=== PATIENT | male | born 1960 | race Caucasian/White ===

== ENCOUNTER 2018-02-03 18:17 | Observation (INO) | payer BC ==
[2018-02-03] MEDS ORDERED: HYDROmorphone 1 MG/ML Syringe IVPUSH ONE (18:46)
[2018-02-03] MEDS ORDERED: HYDROmorphone 1 MG/ML Syringe ONE (18:47)
[2018-02-03] MEDS ORDERED: Belladonna Alkaloids/Opium 16.2-30 MG Supp RECTAL ONE (19:02)
[2018-02-03] MEDS: Acetaminophen/HYDROcodone 325-5 MG Tab PO PRN (20:49)
[2018-02-03] MEDS: Famotidine 20 MG Tab PO SCH (21:14)
[2018-02-03] MEDS: Docusate Sodium 100 MG Cap PO SCH (21:15)
[2018-02-03] MEDS: Bacitracin Oint 28.35 GM Tube TOP SCH (22:37)
--- NOTE | 2018-02-04 01:04 | HP ---
DATE OF : 1960 PRIMARY CARE PHYSICIAN: None PCP HISTORY OF PRESENT ILLNESS: A 57-year-old. He presented to the emergency room with gross hematuria. Apparently, 5 or 6 weeks ago, he had a bladder tumor resection done elsewhere. He started bleeding 2 days ago and the bleeding became excessive. His hemoglobin went from 13 to 9.8 earlier today. PAST MEDICAL HISTORY: Coronary artery bypass surgery. Cold with staph infection. Thirteen weeks of IV antibiotics. He has no cardiac stents. MEDICATIONS: He is on multiple medications including Plavix. PHYSICAL EXAMINATION: GENERAL APPEARANCE: Normal. He is alert and oriented. VITAL SIGNS: Normal. HEART: Normal sinus rhythm. LUNGS: Clear. ABDOMEN: Benign, soft, negative. GENITOURINARY: External genitalia normal. EXTREMITIES: Good peripheral pulses. No edema. DIAGNOSIS: Gross hematuria, 5 weeks, following TURBT done elsewhere. PLAN: I irrigated his bladder with using 6-hole catheter, cleared small amount of clots out, started irrigation. The return is pink. I will check his hemoglobin today and again tomorrow morning. If he is completely clear by tomorrow, I am going to send him home and bring him back for cystoscopy. If he is not completely clear, we will take him to the operating room does cystoscopy and stop the bleeders. He had a CT scan done earlier in the week and that showed normal kidneys, probably some blood clots in the bladder. ROSA SNOW /[id number]
[2018-02-04] MEDS: Cephalexin 500 MG Cap PO SCH ×4 (01:11→17:00)
[2018-02-04] MEDS: Acetaminophen/HYDROcodone 325-5 MG Tab PO PRN ×2 (02:34→06:58)
[2018-02-04] MEDS: Bacitracin Oint 28.35 GM Tube TOP SCH ×2 (06:59→13:46)
[2018-02-04 07:11] LABS: CHLORIDE,CL 102 mmol/L (98-107); SODIUM,NA 137 mmol/L (136-148)
[2018-02-04] MEDS ORDERED: Belladonna Alkaloids/Opium 16.2-30 MG Supp RECTAL ONE (07:50)
[2018-02-04] MEDS ORDERED: glyBURIDE 5 MG Tab PO SCH (08:00)
[2018-02-04] MEDS: Docusate Sodium 100 MG Cap PO SCH (08:44)
[2018-02-04] MEDS: Famotidine 20 MG Tab PO SCH (08:45)
[2018-02-04] MEDS ORDERED: fentaNYL 250 MCG/5 ML SDV ONE (08:55)
[2018-02-04] MEDS ORDERED: Midazolam 1 MG/ML 2 ML SDV ONE (08:55)
[2018-02-04] MEDS ORDERED: Etomidate 2 MG/ML 20 ML SDV IVPUSH ONE (08:55)
[2018-02-04] MEDS ORDERED: Lidocaine 2% 5 ML SDV ONE (08:57)
[2018-02-04] MEDS ORDERED: Glycopyrrolate 0.2 MG/ML SDV ONE (08:57)
[2018-02-04] MEDS ORDERED: Ondansetron 4 MG/2 ML SDV ONE (08:57)
[2018-02-04] MEDS ORDERED: Hydrochlorothiazide/Losartan 12.5-50 mg Tab PO SCH (09:00)
[2018-02-04] MEDS ORDERED: Pioglitazone 15 MG Tab PO SCH (09:00)
[2018-02-04] MEDS ORDERED: amLODIPine 5 MG Tab PO SCH (09:00)
--- NOTE | 2018-02-04 10:05 | PCM.PREANE ---
Preanesthetic Assessment - Procedure Proposed Procedure: Cystoscopy for bleeder cautery/coagulation - Anesthesia/Transfusion/Family Hx Anesthesia History: Prior Anesthesia Without Reaction Transfusion History: No Prior Transfusion(s) Intubation History: Unknown - Review of Systems General: Other (bleeding in urine - catheter removed a few minutes ago) Pulmonary: No Symptoms Cardiovascular: Other (HTN; hypercholesterolemia; hx GA; s/p bypass) Gastrointestinal: Other (GERD; daily meds taken) Neurological: No Symptoms Other: Reports: Diabetes (type II) - Physical Assessment NPO Status Date: 02/04/18 NPO Status Time: 00:05 O2 Sat by Pulse Oximetry: 97 Respiratory Rate: 18 Blood Pressure: 143/80 Temperature: 97.3 F Vital Signs: Last Vital Signs Temp 97.3 F 02/04/18 08:15 Pulse 106 H 02/04/18 08:15 Resp 18 02/04/18 08:15 BP 143/80 H 02/04/18 09:07 Pulse Ox 97 02/04/18 08:15 Height: 6 ft 1 in Weight: 208 lb ASA Class: 3E Mental Status: Alert & Oriented x3 Airway Class: Mallampati = 1 Dentition: Reports: Normal Dentition (irregular) Thyro-Mental Finger Breadths: 3 Mouth Opening Finger Breadths: 3 (stubble logan) ROM/Head Extension: Full Lungs: Clear to Auscultation, Normal Respiratory Effort Cardiovascular: Regular Rate, Regular Rhythm, No Murmurs - Lab Values: Laboratory Last Values WBC 9.67 K/uL (4.0-11.0) 02/04/18 05:20 RBC 3.07 M/uL (4.50-5.90) L 02/04/18 05:20 Hgb 9.5 g/dL (13.0-17.0) L 02/04/18 05:20 Hct 27.8 % (38.0-50.0) L 02/04/18 05:20 MCV 90.6 fL (80.0-98.0) 02/04/18 05:20 MCH 30.9 pg (27.0-32.0) 02/04/18 05:20 MCHC 34.2 g/dL (31.0-37.0) 02/04/18 05:20 RDW Std Deviation 45.5 fl (28.0-62.0) 02/04/18 05:20 RDW Coeff of Brock 14 % (11.0-15.0) 02/04/18 05:20 Plt Count 257 K/uL (150-400) 02/04/18 05:20 MPV 9.90 fL (7.40-12.00) 02/04/18 05:20 Neut % (Auto) 58.8 % (48.0-80.0) 02/04/18 05:20 Lymph % (Auto) 23.6 % (16.0-40.0) 02/04/18 05:20 [place] % (Auto) 13.9 % (0.0-15.0) 02/04/18 05:20 Eos % (Auto) 3.1 % (0.0-7.0) 02/04/18 05:20 Baso % (Auto) 0.6 % (0.0-1.5) 02/04/18 05:20 Neut # (Auto) 5.7 K/uL (1.4-5.7) 02/04/18 05:20 Lymph # (Auto) 2.3 K/uL (0.6-2.4) 02/04/18 05:20 [place] # (Auto) 1.3 K/uL (0.0-0.8) H 02/04/18 05:20 Eos # (Auto) 0.3 K/uL (0.0-0.7) 02/04/18 05:20 Baso # (Auto) 0.1 K/uL (0.0-0.1) 02/04/18 05:20 Nucleated RBC % 0.0 /100WBC 02/04/18 05:20 Nucleated RBCs # 0 K/uL 02/04/18 05:20 INR 1.03 02/03/18 22:00 Sodium 137 mmol/L (136-148) 02/04/18 05:20 Potassium 4.5 mmol/L (3.5-5.1) 02/04/18 05:20 Chloride 102 mmol/L (98-107) 02/04/18 05:20 Carbon Dioxide 27.7 mmol/L (21.0-32.0) 02/04/18 05:20 BUN 20 mg/dL (7.0-18.0) H 08/22/18 05:20 Creatinine 1.1 mg/dL (0.8-1.3) 02/04/18 05:20 Est Cr Clr Drug Dosing 81.72 mL/min 02/04/18 05:20 Estimated GFR (MDRD) > 60.0 ml/min 02/04/18 05:20 Glucose 228 mg/dL (74-106) H 02/04/18 05:20 POC Glucose 203 mg/dL (60-110) H 02/04/18 06:00 Calcium 8.9 mg/dL (8.5-10.1) 02/04/18 05:20 Blood Type B POSITIVE 02/03/18 22:00 Antibody Screen NEGATIVE 02/03/18 22:00 Crossmatch See Detail 02/03/18 22:00 - Allergies Allergies/Adverse Reactions: Allergies Allergy/AdvReac Type Severity Reaction Status Date / Time No Known Allergies Allergy Verified 02/03/18 18:19 - Blood Blood Available: No Product(s) Available: None (was transfused two units since arrival in hospital) - Anesthesia Plan Pre-Op Medication Ordered: None - Acknowledgements Anesthesia Type Planned: General Anesthesia Pt an Appropriate Candidate for the Planned Anesthesia: Yes Alternatives and Risks of Anesthesia Discussed w Pt/Guardian: Yes Pt/Guardian Understands and Agrees with Anesthesia Plan: Yes Additional Comments: Ordered EKG since none available for reference; due to his history PreAnesthesia Questionnaire Cardiovascular History: Reports: Bypass, High Cholesterol, Hypertension, [place] Gastrointestinal History: Reports: GERD Endocrine/Metabolic History: Reports: Diabetes, Type II - Past Surgical History Male Surgical History: Reports: Other (See Below) Other Male Surgeries/Procedures: bladder sx - SUBSTANCE USE Smoking Status *Q: Current Every Day Smoker Tobacco Use Within Last Twelve Months: Cigarettes Recreational Drug Use History: No - CURRENT (IN HOUSE) MEDS Current Meds: Current Medications Hydrocodone Bitart/Acetaminophen ([place]lemons 325-5 Mg) 1 tab PO Q4H PRN PRN Reason: Abdominal Pain Last Admin: 02/04/18 06:58 Dose: 1 tab Amlodipine Besylate (Norvasc) 10 mg PO DAILY [facility] Last Admin: 02/04/18 09:07 Dose: 10 mg Bacitracin (Bacitracin Oint) 0 gm TOP TID DIAMANTE Last Admin: 02/04/18 06:59 Dose: 1 applic Cephalexin (Keflex) 500 mg PO Q6HR [facility] Last Admin: 02/04/18 06:10 Dose: 500 mg Docusate Sodium (Colace) 100 mg PO BID [facility] Last Admin: 02/04/18 08:44 Dose: Not Given Famotidine (Pepcid) 40 mg PO BID [facility] Last Admin: 02/04/18 08:45 Dose: Not Given Glyburide (Micronase) 5 mg PO WITHBREAKFAST [facility] Last Admin: 02/04/18 08:44 Dose: Not Given HCTZ/Losartan Potassium (Hyzaar 50-12.5 Mg) 1 tab PO DAILY [facility] Last Admin: 02/04/18 09:06 Dose: 1 tab Pioglitazone HCl (Actos) 30 mg PO DAILY [facility] Last Admin: 02/04/18 08:44 Dose: Not Given Discontinued Medications Belladonna Alkaloids/Opium (B & O Supprettes No. 15a) 1 supp RECTAL ONETIME ONE Stop: 02/03/18 19:03 Last Admin: 02/03/18 19:11 Dose: 1 supp Belladonna Alkaloids/Opium (B & O Supprettes No. 15a) 1 supp RECTAL ONETIME ONE Stop: 02/04/18 07:51 Last Admin: 02/04/18 07:56 Dose: 1 supp Etomidate (Amidate) Confirm Administered Dose 40 mg IVPUSH .STK-MED ONE Stop: 02/04/18 08:56 Fentanyl (Sublimaze) Confirm Administered Dose 250 mcg .ROUTE .STK-MED ONE Stop: 02/04/18 08:56 Glycopyrrolate (Robinul) Confirm Administered Dose 0.2 mg .ROUTE .STK-MED ONE Stop: 02/04/18 08:58 Hydromorphone HCl (Dilaudid) 1 mg IVPUSH ONETIME ONE Stop: 02/03/18 18:47 Last Admin: 02/03/18 19:11 Dose: 1 mg Hydromorphone HCl (Dilaudid) Confirm Administered Dose 1 mg .ROUTE .STK-MED ONE Stop: 02/03/18 18:48 Last Admin: 02/03/18 19:11 Dose: Not Given Lidocaine (Xylocaine-Mpf 2%) Confirm Administered Dose 5 ml .ROUTE .STK-MED ONE Stop: 02/04/18 08:58 Midazolam HCl (Versed 1 Mg/Ml) Confirm Administered Dose 2 mg .ROUTE .STK-MED ONE Stop: 02/04/18 08:56 Ondansetron HCl (Zofran) Confirm Administered Dose 4 mg .ROUTE .STK-MED ONE Stop: 02/04/18 08:58
[2018-02-04] MEDS ORDERED: Phenylephrine/Normal Saline 100 MCG/ML 10 ML Syringe ONE (11:07)
[2018-02-04] MEDS ORDERED: Propofol 200 MG/20 ML SDV ONE (11:15)
--- NOTE | 2018-02-04 11:58 | PCM.POSTAN ---
POST ANESTHESIA ASSESSMENT - MENTAL STATUS Mental Status: Alert, Oriented - RESPIRATORY Respiratory Status: Respiratory Rate WNL, Airway Patent, O2 Saturation Stable - CARDIOVASCULAR CV Status: Pulse Rate WNL, Blood Pressure Stable - GASTROINTESTINAL GI Status: No Symptoms - PAIN Pain Score: 0 - POST OP HYDRATION Hydration Status: Adequate & Stable
--- NOTE | 2018-02-04 12:44 | PCM48HPAN ---
Post Anesthesia Note - EVALUATION WITHIN 48HRS OF ANESTHETIC Vital Signs in Normal Range: Yes Patient Participated in Evaluation: Yes Respiratory Function Stable: Yes Airway Patent: Yes Cardiovascular Function Stable: Yes Hydration Status Stable: Yes Pain Control Satisfactory: Yes Nausea and Vomiting Control Satisfactory: Yes Mental Status Recovered: Yes Resp Rate: 19 Temperature: 36.3 C Blood Pressure: 143/80
--- NOTE | 2018-02-04 14:25 | OR ---
SURGEON: Ras Robbins M.D. DATE OF PROCEDURE: 02/04/2018 PREOPERATIVE DIAGNOSIS: Hematuria following transurethral resection of bladder tumor. POSTOPERATIVE DIAGNOSIS: Hematuria following transurethral resection of bladder tumor. OPERATIONS: Cystoscopy and fulguration of bleeders. DESCRIPTION OF PROCEDURE: The patient was given general anesthesia, placed in dorsal lithotomy position, prepped and draped in sterile drapes. Cystourethroscopy was done. A small amount of blood clot was removed. Inspection of the inside of bladder showed quite a few hemorrhagic areas, but there was one singular bleeding vessel on the left side of the bladder that was fulgurated. It appears that he has had a large bladder tumor removed. With that done, the procedure was terminated. The 16-Georgian Kim catheter was left in straight drainage. The patient tolerated the procedure well and was moved to recovery room in good condition. ROSA / GWENDOLYN /[id number]
--- NOTE | 2018-02-05 04:56 | DISCH ---
DATE OF DISCHARGE: 02/04/2018 PRIMARY CARE PHYSICIAN: Debi PCP HOSPITAL COURSE: A 57 years old. He was admitted to the hospital with gross total hematuria. He was 6 weeks status post TURBT done elsewhere. He was admitted yesterday. The TUR drip was started. I gave him 2 units of blood for hemoglobin that was 9.5 and 2 units of fresh frozen plasma hoping that would stop the bleeding, that did not, so he was taken to the operating room today. Hemoglobin was still 9.5, and I found a bleeder that I was able to fulgurate. Postoperatively, he did well. The urine became clear and stayed clear the rest of the afternoon, and he was discharged. He is instructed to either get back to his urologist for followup cystoscopy for bladder tumor recheck and also is instructed to check with his foam charger about the need for Plavix, which might have been a factor in the bleeding, which he has stopped 5 days prior to coming to the hospital, and he is still off that for another week. ROSA / GWENDOLYN /[id number]
== END 2018-02-04 17:30 | disposition home or self-care (01) ==
LOC: MW.ED 18:17 → MW.MS 19:14
PROVIDERS: ADMIT Urology; ATTEND Urology
DX: R31.0 Gross hematuria (principal); I10 Essential (primary) hypertension; E11.9 Type 2 diabetes mellitus without complications; F17.210 Nicotine dependence, cigarettes, uncomplicated; E78.00 Pure hypercholesterolemia, unspecified; I25.2 Old myocardial infarction; K21.9 Gastro-esophageal reflux disease without esophagitis; Z79.84 Long term (current) use of oral hypoglycemic drugs; Z79.02 Long term (current) use of antithrombotics/antiplatelets; Z79.899 Other long term (current) drug therapy; Z95.1 Presence of aortocoronary bypass graft; Z90.6 Acquired absence of other parts of urinary tract
CPT/HCPCS: 36415; 36430; 53899; 80048; 82962; 85025; 85610; 86850; 86900; 86901; 86920; 86921; 86922; 96374; 99285; A9270; G0378; J1170; J2250; J2370; J2405; J2704; J3010; J3490; P9016; P9017

== ENCOUNTER 2018-03-02 07:38 | Emergency (ER) | payer BC ==
[2018-03-02] MEDS ORDERED: cefTRIAXone 1,000 MG in Lidocaine 1% 4 ML IM ONE (08:30)
[2018-03-02] MEDS ORDERED: Azithromycin 250 MG Tab PO STA (08:30)
--- NOTE | 2018-03-02 08:37 | EDM.PDOC ---
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 Johnson apparently a benign tumor was removed from his bladder] Review of systems: As per history of present illness and below otherwise all systems reviewed and negative. Past medical history: As per history of present illness and as reviewed below otherwise noncontributory. Surgical history: As per history of present illness and as reviewed below otherwise noncontributory. Social history: No reported history of drug or alcohol abuse. Family history: As per history of present illness and as reviewed below otherwise noncontributory. Physical exam: HEENT: Atraumatic, normocephalic, pupils reactive, negative for conjunctival pallor or scleral icterus, mucous membranes moist, throat clear, neck supple, nontender, trachea midline. Lungs: Clear to auscultation, breath sounds equal bilaterally, chest nontender. Heart: S1S2, regular, negative for clicks, rubs, or JVD. Abdomen: Soft, nondistended, nontender. Negative for masses or hepatosplenomegaly. Negative for costovertebral tenderness. Pelvis: Stable nontender. Genitourinary: Deferred. Rectal: Deferred. Extremities: Atraumatic, negative for cords or calf pain. Neurovascular unremarkable. Neuro: Awake, alert, oriented. Cranial nerves II through XII unremarkable. Cerebellum unremarkable. Motor and sensory unremarkable throughout. Exam nonfocal. Diagnostics: UA and urine culture Therapeutics: [1 g Rocephin IM Azithromycin 1 g by mouth now ] Bactrim double strength by mouth twice a day #60 no refill Impression: [ hematuria with leukocyte esterase positive Clinical UTI / prostatitis] Definitive disposition and diagnosis as appropriate pending reevaluation and review of above. Penis Pain Score (Numeric/FACES): 8 - Related Data Allergies Allergy/AdvReac Type Severity Reaction Status Date / Time No Known Allergies Allergy Verified 03/02/18 07:57 Past Medical History Cardiovascular History: Reports: Bypass, High Cholesterol, Hypertension, [place] Gastrointestinal History: Reports: Colon Polyp, GERD Endocrine/Metabolic History: Reports: Diabetes, Type II - Past Surgical History HEENT Surgical History: Reports: Adenoidectomy, Tonsillectomy Male Surgical History: Reports: Other (See Below) Other Male Surgeries/Procedures: bladder sx Social & Family History - Family History Family Medical History: Noncontributory - Tobacco Use Smoking Status *Q: Current Every Day Smoker Years of Tobacco use: 47 Packs/Tins Daily: 0.1 - Caffeine Use Caffeine Use: Reports: Coffee, Soda - Recreational Drug Use Recreational Drug Use: No ED ROS GENERAL - Review of Systems Review Of Systems: See Below ED EXAM, GENERAL - Physical Exam Exam: See Below Course - Vital Signs Last Recorded V/S: Last Vital Signs Temp 97.7 F 03/02/18 07:53 Pulse 95 03/02/18 07:53 Resp 16 03/02/18 07:53 BP 143/79 H 03/02/18 07:53 Pulse Ox 96 03/02/18 07:53 - Orders/Labs/Meds Orders: Active Orders 24 hr Category Date Time Status CULTURE URINE [RM] Stat Lab 03/02/18 08:21 Ordered Labs: Laboratory Tests 03/02/18 Range/Units 08:00 Urine Color YELLOW Urine Appearance SLT CLOUDY Urine pH 5.5 (5.0-8.0) Ur Specific [place] >= 1.030 (1.001-1.035) Urine Protein NEGATIVE (NEGATIVE) mg/dL Urine Glucose (UA) 100 H (NEGATIVE) mg/dL Urine Ketones 15 H (NEGATIVE) mg/dL Urine Occult Blood LARGE H (NEGATIVE) Urine Nitrite NEGATIVE (NEGATIVE) Urine Bilirubin NEGATIVE (NEGATIVE) Urine Urobilinogen 0.2 (<2.0) EU/dL Ur Leukocyte Esterase SMALL (NEGATIVE) Urine RBC 25-30 (0-2/HPF) Urine WBC 4-8 (0-5/HPF) Ur Epithelial Cells RARE (NONE-FEW) Amorphous Sediment RARE (NEGATIVE) Urine Bacteria RARE (NEGATIVE) Meds: Medications Discontinued Medications Generic Name Dose Route Start Last Admin Trade Name Freq PRN Reason Stop Dose Admin Azithromycin 1,000 mg 03/02/18 08:30 Zithromax PO 03/02/18 08:31 NOW STA Ceftriaxone Sodium 1,000 mg/ 4 mls @ 4 mls/sec 03/02/18 08:30 Lidocaine HCl IM 03/02/18 08:31 ONETIME ONE Departure - Departure Time of Disposition: 08:37 Disposition: Home, Self-Care 01 Condition: Good Clinical Impression: UTI, Urinary tract infectious disease, Prostatitis - Discharge Information Referrals: PCP,None [Primary Care Provider] - Additional Instructions: Return if symptoms persist or worsen Medications as prescribed If symptoms persist despite treatment then I would recommend following up with Dr. Johnson once more [facility] - Urology [address] [place] [id number] The following information is given to patients seen in the emergency department who are being discharged to home. This information is to outline your options for follow-up care. We provide all patients seen in our emergency department with a follow-up referral. The need for follow-up, as well as the timing and circumstances, are variable depending upon the specifics of your emergency department visit. If you don't have a primary care physician on staff, we will provide you with a referral. We always advise you to contact your personal physician following an emergency department visit to inform them of the circumstance of the visit and for follow-up with them and/or the need for any referrals to a consulting specialist. The emergency department will also refer you to a specialist when appropriate. This referral assures that you have the opportunity for follow-up care with a specialist. All of these measure are taken in an effort to provide you with optimal care, which includes your follow-up. Under all circumstances we always encourage you to contact your private physician who remains a resource for coordinating your care. When calling for follow-up care, please make the office aware that this follow-up is from your recent emergency room visit. If for any reason you are refused follow-up, please contact the [facility] emergency department at and asked to speak to the emergency department charge nurse. - My Orders Last 24 Hours: My Active Orders 03/02/18 08:21 CULTURE URINE [RM] Stat - Assessment/Plan Last 24 Hours: My Active Orders 03/02/18 08:21 CULTURE URINE [RM] Stat
== END 2018-03-02 09:15 | disposition home or self-care (01) ==
LOC: MW.ED 07:38
DX: N41.9 Inflammatory disease of prostate, unspecified (principal); N39.0 Urinary tract infection, site not specified; E11.9 Type 2 diabetes mellitus without complications; F17.210 Nicotine dependence, cigarettes, uncomplicated; I10 Essential (primary) hypertension; I25.2 Old myocardial infarction; Z79.84 Long term (current) use of oral hypoglycemic drugs; Z79.899 Other long term (current) drug therapy
CPT/HCPCS: 81001; 87086; 96372; 99283; A9270; J0696; J2001